=== PATIENT | female | born 1995 | race Caucasian/White ===

== ENCOUNTER 2016-07-11 17:37 | Emergency (ER) | payer MEDICAID ==
[~2016-07-11] VITALS: Ht 185.4 cm; Wt 99.8 kg
--- NOTE | 2016-07-11 17:37 | NUR ---
BROUGHT BACK TO BED #8 AND TRIAGED. REPORT GIVEN TO SONJA
[2016-07-11 17:38] VITALS: BP 147/72; PULSE 102; RESP 19; TEMP 97.4; O2SAT 99
--- NOTE | 2016-07-11 17:45 | NUR ---
Pt brought in by girlfriend in stable condition. Pt c/o sore throat and cough x2 wks. Pt stated that she is spitting up green sputum and thinks she might have popped a blister in her throat. +fever -sob -chest pain. No acute distress noted at this time, will continue to monitor
--- NOTE | 2016-07-11 18:06 | NUR ---
ER at bedside examining patient.
[2016-07-11] MEDS ORDERED: KETOROLAC TROMETHAMINE 60 MG/2 ML VIAL IM ONE (18:30)
[2016-07-11] MEDS ORDERED: DEXAMETHASONE SOD PHOSPHATE 10 MG/ML VIAL IM ONE (18:30)
[2016-07-11 18:45] VITALS: BP 138/80; PULSE 98; RESP 19; TEMP 97.4; O2SAT 99
--- NOTE | 2016-07-11 18:45 | NUR ---
Patient given written and verbal discharge instructions and verbalizes understanding. ER MD Dr. Graves discussed with patient the results and treatment provided. Patient in stable condition. ID arm band removed. Rx of ibuprofen 600, Prednisone, Flonase, Augmentin given. Patient educated on pain management and to follow up with PMD. Pain Scale 3/10. Opportunity for questions provided and answered.
== END 2016-07-11 18:45 | disposition home or self-care (01) ==
LOC: SED 17:37
DX: J01.90 Acute sinusitis, unspecified (principal)
CPT/HCPCS: 96372; 99284; J1100; J1885

== ENCOUNTER 2016-10-06 13:25 | Emergency (ER) | payer MEDICAID ==
[~2016-10-06] VITALS: Ht 185.4 cm; Wt 104.3 kg
[2016-10-06 13:34] VITALS: BP_SYST 124
[2016-10-06 14:03] LABS: CLARITY/URINE HAZY (CLEAR); COLOR,URINE AMBER (YELLOW); GLUCOSE,URINE NEGATIVE (NEGATIVE); PROTEIN URINE TRACE (NEGATIVE)
[2016-10-06 14:04] LABS: BILIRUBIN,URINE 1+ (NEGATIVE); BLOOD, URINE 3+ (NEGATIVE); KETONES,URINE NEGATIVE (NEGATIVE); LEUKOCYTE ESTERASE ,URINE NEGATIVE (NEGATIVE); NITRITE, URINE NEGATIVE (NEGATIVE)
[2016-10-06 14:11] LABS: WBC,URINE 0-3 /HPF (0-3)
[2016-10-06 14:12] LABS: BACTERIA,URINE MODERATE /HPF (None Seen); MUCUS,URINE 1+ /LPF (None Seen)
[2016-10-06 15:31] VITALS: BP_SYST 120
== END 2016-10-06 15:31 | disposition home or self-care (01) ==
LOC: SED 13:25
DX: J11.1 Influenza due to unidentified influenza virus with other respiratory manifestations (principal)
CPT/HCPCS: 81000-TC; 81025; 87086; 99284

== ENCOUNTER 2016-12-12 14:57 | Emergency (ER) | payer MEDICAID ==
[~2016-12-12] VITALS: Ht 188 cm; Wt 99.8 kg
[2016-12-12 14:57] VITALS: BP_SYST 130
== END 2016-12-12 17:20 | disposition left against medical advice (07) ==
LOC: SED 14:57
DX: F41.9 Anxiety disorder, unspecified (principal); Z53.21 Procedure and treatment not carried out due to patient leaving prior to being seen by health care provider
CPT/HCPCS: 93005; 99281